=== PATIENT | female | born 1995 | race Caucasian/White ===

== ENCOUNTER 2022-12-19 15:15 | Outpatient (CLI) | payer OTHER, SELFPAY ==
[2022-12-19 16:34] LABS: Basophils Absolute Auto 0.1 K/mm3 (0.0-0.1); Basophils Percent Auto 0.6 % (0.2-1.2); Eosinophils Absolute Auto 0.2 K/mm3 (0-0.3); Eosinophils Percent Auto 2.1 % (0-4.4); Hematocrit 42.2 % (37.0-47.0); Hemoglobin 13.5 g/dL (12.0-15.0); Immature Granulocyte Absolute 0.03 K/mm3 (0.00-0.031); Immature Granulocyte Percent A 0.4 % (0-0.5); Lymphocytes Absolute Auto 1.72 K/mm3 (0.9-3.2); Lymphocytes Percent Auto 21.6 % (18.3-44.2); Mean Corpuscular Hemoglobin 27.4 pg (26-34); Mean Corpuscular Volume 85.8 fl (80-100); Mean Platelet Volume 10.9 fl (7.4-10.4); Monocytes Absolute Auto 0.5 K/mm3 (0.1-0.6); Monocytes Percent Auto 5.8 % (2.6-8.5); Neutrophils Absolute Auto 5.5 K/mm3 (1.3-6.7); Neutrophils Percent Auto 69.5 % (45.5-73.1); Platelet Count Result 286 k/mm3 (150-375); Red Blood Count 4.92 M/mm3 (4.2-5.4); Red Cell Distribution Width 13.3 % (11.5-14.5)
[2022-12-21 06:34] LABS: Prolactin 9.3 ng/mL (***)
== END 2022-12-19 15:16 | disposition home or self-care (01) ==
PROVIDERS: Visit Provider Obstetrics & Gynecology
DX: N92.0 Excessive and frequent menstruation with regular cycle (principal)
CPT/HCPCS: 36415; 84146; 84443; 85025

== ENCOUNTER 2023-01-26 10:17 | Observation (INO) | payer OTHER, SELFPAY ==
[2023-01-20 11:50] VITALS: BMI 40.3
--- NOTE | 2023-01-20 11:54 | PC.NURSE ---
Report to the Outpatient Waiting Room, entrance under the green pavilion located off [facility], at time 6:00 on date 01/26/23. Planned Procedure Time: 7:30. Time changes happen often and if your time is changed the preop area will call you the afternoon before. - You and your visitor will be asked to self-screen and do not enter if you have any COVID symptoms. - A mask is optional within the hospital at this time. Patients may have clear liquids (water, carbonated beverages, clear teas, apple juice) until 3 hours prior to surgery (4:30) with a maximum of 20 ounces. - No food from midnight until time of surgery Take the following medications with a SIP of water the morning of surgery: CITALOPRAM DO NOT STOP ANY OF YOUR OTHER PRESCRIPTION MEDICATIONS PRIOR TO SURGERY ?EXCEPT THE FOLLOWING Medications to discontinue per physician: N/A Date to take last dose: N/A Please no make-up, nail arabic, hairspray, perfume, deodorant, or body powder the day of surgery. No jewelry (including any body piercings) or valuables the day of surgery, leave them at home. Please take a shower or bath the night before, or the morning of, surgery with an antibacterial soap. Wear comfortable, loose fitting clothing. - Jewelry must be removed prior to entering the operating room. Rings and piercings that are not removed may be cut off. - The hospital will not accept responsibility for valuables. - Please leave all valuables, including medications, at home the day of surgery. If you are going home after surgery, a licensed hazmat tanker driver must drive you home. - NO public transportation without another adult if you receive anesthesia. - We recommend that an adult stay with you for 24 hours following discharge. - We also recommend that you do not drive, make important decision, drink alcoholic beverages, or take any drugs that were not prescribed by your health care provider for at least 24 hours after your discharge time. Follow any additional instructions given to you from your surgeon. If you or anyone in your household have experienced Covid symptoms in the past week, please notify your surgeon or the nurse liaison at the phone number below for possible testing. Telephone instructions given to PT - DEYANIRA AMBRIZ and asked if any additional questions and then verbalized understanding. Patient advised to call surgeon office or pre surgery nurse liaison [phone] if any additional questions.
[2023-01-26] VITALS (9 sets, daily range): BP systolic 93–135; BP diastolic 58–88; PULSE 56–94; RESP 12–20; TEMP 36.3–37.1; O2SAT 90–100; BMI 41.3
--- NOTE | 2023-01-26 06:45 | WPDANESEPPF ---
Anes - Initial Pre Proc Eval Procedure: Operation Date: 01/26/23 07:30 Proposed Procedures p Robotic Assisted Total Laparoscopic Hysterectomy with Bilateral Salpingectomy - Daniele Campuzano MD Date/Time: 01/26/23 06:45 Surgeon: Daniele Campuzano MD Pre Op Diagnosis: menorrhagia Patient Data Age: 27 Gender: F Height: 1.68 m Weight: 113.4 kg Allergies Allergy/AdvReac Type Severity Reaction Status Date / Time No Known Allergies Allergy Verified 01/20/23 11:50 Home Medications Medication Instructions Recorded Confirmed Type citalopram 10 mg tablet 10 mg PO DAILY 12/19/22 01/26/23 History hydroxyzine HCl 50 mg tablet 50 mg PO HS 12/19/22 01/26/23 History Patient hx anesthesia problems: none Family hx anesthesia problems: none Results Review: All pre-operative results and documents have been reviewed as part of the pre-operative evaluation. [facility] Past Medical History Medical History Missed ab Nexplanon insertion (~10/13/19) Nexplanon removal Vaginal delivery 09/14/13 premature at 29 weeks 08/25/19 delivered at 36 weeks Surgical History Surgical History H/O gynecological procedure 03/2020 tubal ligation History of orthopedic surgery ~2009 R foot surgery Hx of tonsillectomy Family History Family History Grandparent Breast cancer maternal grandmother Mother Endometriosis Social History Social History Smoking status: Current every day smoker Tobacco type: e-cigarettes/vaping Alcohol intake: never Substance use: never Substance use type: does not use Lack of Transportation: No Lack of Food: Never True Current Housing: I Have Housing Concerned About Future Housing: No Difficulty Paying Gas/Electric Bills: No Difficulty Paying for Meds: No Education: High School Diploma/GED Difficulty w/ Childcare or Family Care: No Living arrangements: with family Additional living arrangements comments: Occupation/Education: 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 Informed Consent: The patient's anesthetic plan and its attendant risks and benefits were discussed with the patient/family/POA. Questions were solicited and answers provided to the satisfaction of the patient/family/POA.
[2023-01-26] MEDS: SCOPOLAMINE 1.5 MG PATCH TRANSDERM (06:55)
[2023-01-26] MEDS: LACTATED RINGERS 1,000 ML 30 ML IV CONT ×2 (06:56→09:39)
[2023-01-26] MEDS: ACETAMINOPHEN 500 MG TABLET 1000 MG PO (06:56)
[2023-01-26] MEDS: KETOROLAC 15 MG/ML VIAL (*BKC) IV PUSH (06:56)
[2023-01-26 07:08] LABS: Hematocrit 43.9 % (37.0-47.0); Hemoglobin 13.9 g/dL (12.0-15.0); Mean Corpuscular HGB Conc 31.7 g/dl (32-36); Mean Corpuscular Hemoglobin 26.8 pg (26-34); Mean Corpuscular Volume 84.7 fl (80-100); Mean Platelet Volume 10.8 fl (7.4-10.4); Platelet Count Result 265 k/mm3 (150-375); Red Blood Count 5.18 M/mm3 (4.2-5.4); Red Cell Distribution Width 13.2 % (11.5-14.5); White Blood Count 9.2 K/mm3 (4.5-10.0)
--- NOTE | 2023-01-26 07:12 | WPDHPUPDATE1 ---
History and Physical Update Update Date/Time: 01/26/23 07:12 Proceed with robotic total hysterectomy with bilateral salpingectomy History and Physical has been reviewed, including an updated exam of the patient. There are NO changes in the patient's condition. Risks, benefits, and alternatives have been discussed and questions answered. Patient agrees to proceed with procedure.
--- NOTE | 2023-01-26 08:52 | P.OP_ITS ---
Procedure Note - Detailed Date of Procedure 01/26/23 Pre-op Diagnosis 1. Menometrorrhagia 2. Pelvic congestion syndrome Post-op Diagnosis Same Procedure Performed Robotic assisted total laparoscopic hysterectomy with bilateral salpingectomy Surgeon Daniele Campuzano MD Anesthesia General Findings Uterus enlarged globular consistent adenomyosis. Prior evidence of tubal ligation noted. Ovaries without abnormality. Description of Procedure Patient prepped and draped usual manner this procedure. Cervical instruments were placed for uterine mobility throughout the case. Abdominal trocar sites were marked and placed under direct visualization. Instruments were placed and Paul system was attached. Surgeon moved to the console and findings were noted as above. Segments of fallopian tubes removed. Utero-ovarian ligaments were cauterized and cut to release the ovaries out of the operative field. Round ligament cauterized and cut bladder flap developed without difficulty. Posterior leaf the broad ligament was also incised to readily exposed the tonto [place] rine vessels. These vessels then cauterized and cut. Colpotomy incision was then made anteriorly and carried circumferentially to separate the cervix from the vaginal wall and the uterus was then delivered into the vagina. V lock suture was then used to approximate the vaginal cuff from the right angle to the midline and the left angle midline with good approximation hemostasis noted. Irrigation was undertaken there was no bleeding. Sameer was placed empirically over the vaginal cuff. Gas was allowed to escape trocars removed and incisions approximated using 4-0 Monocryl the patient was then sent to recovery room in stable condition. Estimated Blood Loss 100 Drains No Packing No Pathology Yes Complications No immediate complications Condition Stable Disposition PACU [facility] Billing Surgery - Charge Forward: Surgery Billing
[2023-01-26] MEDS: fentaNYL CITRATE INJ (*CRX) 100 MCG/2 ML VIAL 25 MCG IV PUSH ×2 (09:31→09:40)
[2023-01-26] MEDS: KETOROLAC 30 MG/ML VIAL (*BKC) IV PUSH (10:50)
[2023-01-26] MEDS: ONDANSETRON INJ 4 MG/2 ML VIAL IV PUSH (14:00)
[2023-01-26] MEDS: CITALOPRAM HYDROBROMIDE 10 MG TABLET PO (17:00)
[2023-01-26] MEDS: IBUPROFEN 600 MG TABLET PO (17:00)
[2023-01-26] MEDS: DOCUSATE SODIUM 100 MG CAPSULE (17:00)
[2023-01-26] MEDS: HYDROcodone/acetaminophen (*CRX) 5-325 MG TABLET 1 TAB PO (19:51)
[2023-01-26] MEDS: SIMETHICONE 80 MG TAB.CHEW PO (19:51)
[2023-01-27 00:04] VITALS: BP 116/72; PULSE 64; RESP 18; TEMP 36.6; O2SAT 100
[2023-01-27 04:30] VITALS: BP 99/53; PULSE 59; RESP 16; TEMP 36.9; O2SAT 100
[2023-01-27 04:58] LABS: Basophils Percent Auto 0.1 % (0.2-1.2); Eosinophils Percent Auto 0.2 % (0-4.4); Hemoglobin 12.1 g/dL (12.0-15.0); Immature Granulocyte Absolute 0.07 K/mm3 (0.00-0.031); Immature Granulocyte Percent A 0.4 % (0-0.5); Lymphocytes Absolute Auto 1.74 K/mm3 (0.9-3.2); Lymphocytes Percent Auto 11.2 % (18.3-44.2); Mean Corpuscular HGB Conc 31.8 g/dl (32-36); Mean Corpuscular Hemoglobin 27.1 pg (26-34); Mean Platelet Volume 10.9 fl (7.4-10.4); Monocytes Absolute Auto 0.6 K/mm3 (0.1-0.6); Monocytes Percent Auto 4.1 % (2.6-8.5); Neutrophils Absolute Auto 13.1 K/mm3 (1.3-6.7); Platelet Count Result 280 k/mm3 (150-375); Red Blood Count 4.47 M/mm3 (4.2-5.4); Red Cell Distribution Width 13.2 % (11.5-14.5); White Blood Count 15.6 K/mm3 (4.5-10.0)
[2023-01-27] MEDS: SIMETHICONE 80 MG TAB.CHEW PO (07:00)
[2023-01-27] MEDS: HYDROcodone/acetaminophen (*CRX) 5-325 MG TABLET 1 TAB PO ×2 (07:00→11:22)
[2023-01-27 08:40] VITALS: BP 121/63; PULSE 52; RESP 18; TEMP 36.8; O2SAT 97
[2023-01-27] MEDS: CITALOPRAM HYDROBROMIDE 10 MG TABLET PO (09:10)
== END 2023-01-27 11:25 | disposition home or self-care (01) ==
LOC: ANHOB2 10:20
PROVIDERS: Admitting Provider Obstetrics & Gynecology; Visit Provider Obstetrics & Gynecology
PROC: (CPT 58571; principal; 2023-01-26 07:30)
DX: N92.0 Excessive and frequent menstruation with regular cycle (principal); N94.89 Other specified conditions associated with female genital organs and menstrual cycle; N80.03 Adenomyosis of the uterus; E66.01 Morbid (severe) obesity due to excess calories; Z68.41 Body mass index [BMI] 40.0-44.9, adult; F17.290 Nicotine dependence, other tobacco product, uncomplicated; Z79.899 Other long term (current) drug therapy; Z84.89 Family history of other specified conditions
CPT/HCPCS: 58571; S2900; 36415; 85025; 85027; 86850; 86900; 86901; 88307; A9270; G0378; G0379; J1100; J1170; J1200; J1885; J2250; J2405; J2704; J3010; J7030; J7120; Q9968

== ENCOUNTER 2023-08-15 11:39 | Outpatient (CLI) | payer OTHER, SELFPAY ==
[2023-08-15 12:32] LABS: Hemoglobin A1C 4.9 % (<5.7)
[2023-08-15 13:08] LABS: Hepatitis B Surface Antigen Negative (Negative)
[2023-08-15 13:14] LABS: HAV RESULT Negative (Negative); Hepatitis B Core IgM Result Negative (Negative)
[2023-08-15 13:17] LABS: HIV 1/2 Ab P24 Ag Result Negative (Negative)
[2023-08-15 13:26] LABS: Hepatitis C Virus Antibody Negative (Negative)
[2023-08-15 13:42] LABS: Rapid Plasma Reagin Non-Reactive (NonReactive)
== END 2023-08-15 11:40 | disposition home or self-care (01) ==
LOC: ANHLAB 11:40
PROVIDERS: Visit Provider Obstetrics & Gynecology
DX: Z11.3 Encounter for screening for infections with a predominantly sexual mode of transmission (principal); B37.31 Acute candidiasis of vulva and vagina
CPT/HCPCS: 36415; 80074; 83036; 86592; 86695; 86696; 86703; G0432